=== PATIENT | female | born 1940 | race Caucasian/White ===

== ENCOUNTER 2016-12-30 11:18 | Emergency (ER) | payer OTHER ==
[~2016-12-30] VITALS: Ht 157.5 cm; Wt 63.5 kg
[~2016-12-30 11:18] MED LIST: ASPI81 PO; DICY1TAB26 PO; ENAL10TA7 PO; LORT5TAB PO; METO50TA PO; OMEP20TA PO; PIOG15 PO; PROM1SUP12 PR; ZOCO40TA PO; ZOFR4TAB3 SL
[2016-12-30 11:20] VITALS: BP 194/85; PULSE 75; RESP 17; TEMP 97.8; O2SAT 98
--- NOTE | 2016-12-30 12:05 | PD ---
HPI Chief Complaint: Cold / Flu Symptoms Time Seen by Provider: 11:45 Travel History International Travel<30 days: No Contact w/Intl Traveler<30days: No Traveled to known affect area: No History of Present Illness HPI Patient is a 76-year-old female presenting to the emergency room for evaluation of a cough. She is mostly Urdu-speaking, she is accompanied by her daughter who declined formal interpretation. Patient states that she has been coughing for 2 weeks, cough is productive with white sputum. She has had nasal congestion which seems to have gotten somewhat better since initiation of her symptoms. She denies any shortness of breath or chest pain, nausea, vomiting, abdominal pain. Her primary care provider prescribed a Z-Diego at the initiation of her symptoms but she reports that she continues to cough. The patient's spouse is currently admitted to the hospital with pneumonia. Patient's past medical history is significant for hypertension, type 2 diabetes, hyperlipidemia , rheumatoid arthritis. PFSH Past Medical History Autoimmune Disease: Yes (rheumatoid arthritis) High Cholesterol: Yes Diabetes: Yes Hypertension: Yes Influenza Vaccination: Yes Menopausal: Yes Past Surgical History Cholecystectomy: Yes Other Surgery: Yes (BREAST BIOPSY) Social History Alcohol Use: No Tobacco Use: No Substance Use: No Allergies-Medications (Allergen,Severity, Reaction): Coded Allergies: Penicillin (Verified Allergy, Severe, UNKNOWN, 12/30/16) Reported Meds & Prescriptions Reported Meds & Active Scripts Active Ipratropium Nasal 0.06% [place] 1 [place] EACH NARE TID PRN Tessalon Perles (Benzonatate) 100 Mg Cap 100 Mg PO TID PRN Bentyl (Dicyclomine HCl) 20 Mg Tab 20 Mg PO Q8 Zofran ODT (Ondansetron HCl) 4 Mg Tab 4 Mg SL Q8 PRN FOR NAUSEA/VOMITING Phenergan 25 mg supp (Promethazine HCl) 25 Mg Sup 12.5-25 Mg GA Q6HPRN FOR NAUSEA/VOMITING Lortab 5/500 (Acetaminophen/Hydrocodone Bitart) 5 Mg/500 Mg Tab 1-2 Tab PO Q6HPRN FOR PAIN Reported Metoprolol Tartrate 50 mg (Metoprolol Tartrate) 50 Mg Tab 50 Mg PO DAILY Zocor 40 mg (Simvastatin) 40 Mg Tab 1 Tab PO HS Enalapril Maleate/Hydroch (Enalapril Maleate & Hydrochlor) 10 Mg Tab 10 Mg PO DAILY Actos 15 mg (Pioglitazone HCl) 15 Mg Tab 15 Mg PO DAILY Aspirin 81 Mg Tab 81 Mg PO DAILY Omeprazole 20 mg (Omeprazole) 20 Mg Tab 20 Mg PO DAILY Review of Systems Except as stated in HPI: all other systems reviewed are Neg General / Constitutional: No: Fever, Chills HENT: Positive: Rhinitis, Congestion, No: Headaches Respiratory: Positive: Cough, No: Shortness of Breath Gastrointestinal: No: Nausea, Abdominal Pain Genitourinary: No: Dysuria Musculoskeletal: Positive: Arthralgias (due to rheumatoid arthritis) Physical Exam Narrative GENERAL: Well-developed, well-nourished, alert elderly female. Resting comfortably in no acute distress. SKIN: Focused skin assessment warm/dry. HEAD: Atraumatic. Normocephalic. EYES: Pupils equal and round. No scleral icterus. No injection or drainage. ENT: No nasal bleeding or discharge. Mucous membranes pink and moist. Posterior pharynx with cobblestoning appearance. NECK: Trachea midline. No JVD. CARDIOVASCULAR: Regular rate and rhythm. No murmur appreciated. RESPIRATORY: No accessory muscle use. Clear to auscultation. Breath sounds equal bilaterally. GASTROINTESTINAL: Abdomen soft, non-tender, nondistended. Hepatic and splenic margins not palpable. MUSCULOSKELETAL: No obvious deformities. No clubbing. No cyanosis. No edema. NEUROLOGICAL: Awake and alert. No obvious cranial nerve deficits. Motor grossly within normal limits. Normal speech. PSYCHIATRIC: Appropriate mood and affect; insight and judgment normal. Data Data Last Documented VS Vital Signs Date Time Temp Pulse Resp B/P Pulse Ox O2 Delivery O2 Flow Rate FiO2 12/30/16 11:46 98 Room Air 12/30/16 11:20 97.8 75 17 194/85 Orders Chest, Pa & Lat (12/30/16 ) MDM Medical Decision Making Medical Screen Exam Complete: Yes Emergency Medical Condition: Yes Interpretation(s) Vital Signs Date Time Temp Pulse Resp B/P Pulse Ox O2 Delivery O2 Flow Rate FiO2 12/30/16 11:46 98 Room Air 12/30/16 11:20 97.8 75 17 194/85 98 Differential Diagnosis Bronchitis versus pneumonia versus allergic rhinitis versus postinfectious cough versus other Narrative Course Patient is a 76-year-old female presenting to the emergency for evaluation of a cough that has been ongoing for 2 weeks. Patient was prescribed a Z-Diego by her primary doctor at the onset of her symptoms, she completed this prescription. She continues to have a dry cough that is productive at times with clear sputum. Patient is Afebrile, she is well oxygenated on room air. She not appear acutely ill. Chest x-ray shows no acute disease. Patient does have nasal congestion with postnasal drip as evidenced by the cobblestone appearance to her posterior pharynx. Cough is likely secondary to that. Patient will be provided with prescription for Atrovent nasal spray and Tessalon Perles. She will be provided with a prescription for doxycycline due to husbands admission to the ICU with bilateral pneumonia. Possible exposure to the same pathogens. She is advised to follow-up with her primary doctor. She is encouraged to return to emergency department for any new or worsening symptoms. Patient and daughter verbalized understanding of these instructions. Patient is stable for discharge. Diagnosis Primary Impression: URI (upper respiratory infection) Qualified Code: J06.9 - Upper respiratory tract infection, unspecified type Referrals: Primary Care Physician 2 days Patient Instructions: Acute Cough (GEN), General Instructions, Upper Respiratory Infection (ED) Additional Instructions: Follow-up with her primary doctor Take medications as directed Return to emergency department immediately for any new or worsening symptoms Med/Other Pt SpecificInfo: Prescription(s) given Scripts Doxycycline Hyclate 100 Mg [id number] Mg PO BID #20 CAP Ref 0 Prov:Ashly Collado 12/30/16 Ipratropium Nasal 0.06% Spr[place]1 [place] EACH NARE TID PRN (NASAL CONGESTION) #1 BOTTLE Ref 0 Prov:Ashly Collado 12/30/16 Benzonatate (Tessalon Perles)100 Mg [id number] Mg PO TID PRN (COUGH) #12 CAP Ref 0 Prov:Ashly Collado 12/30/16 Disposition: 01 DISCHARGE HOME Condition: Stable Ashly Collado Dec 30, 2016 12:05
--- NOTE | 2016-12-30 12:45 | RADRPT ---
EXAM DATE/TIME: 12/30/2016 12:09 [facility] COMPARISON: No previous studies available for comparison. INDICATIONS : Cough. MEDICAL HISTORY : None. SURGICAL HISTORY : None. ENCOUNTER: Initial ACUITY: 2 weeks PAIN SCORE: 0/10 LOCATION: Bilateral chest FINDINGS: The lungs are clear without infiltrate, nodule, or mass. There is no appreciable pleural effusion fo r technique. Heart and mediastinum are unremarkable. Degenerative changes and hypertrophic changes a re seen within the disc space and facets of the thoracic spine. CONCLUSION: No acute cardiopulmonary disease. Kimberly Sutton MD on December 30, 2016 at 12:43 Board Certified Radiologist. This report was verified electronically.
[2016-12-30] MEDS ORDERED: BENZ100 PO (12:53)
[2016-12-30] MEDS ORDERED: IPRA0.06 EACH NARE (12:53)
[2016-12-30] MEDS ORDERED: DOXY100C PO (13:15)
--- NOTE | 2016-12-30 13:15 | PD ---
Data Data Last Documented VS Vital Signs Date Time Temp Pulse Resp B/P Pulse Ox O2 Delivery O2 Flow Rate FiO2 12/30/16 11:46 98 Room Air 12/30/16 11:20 97.8 75 17 194/85 Orders Chest, Pa & Lat (12/30/16 ) MDM Supervised Visit with JOANNE: Yes Narrative Course I, Dr. Hyman, have reviewed the advance practice practioner's documentation and am in agreement, met with the patient face to face, made the diagnosis, and the medical decision making was done by me. *My assessment and Findings: 76-year-old female here with complaint of cough. 2 weeks of cough with sputum production. Not responding to Z-Diego at home. She does have some postnasal drip symptoms. Her spouse is in the ICU presented with a bilateral pneumonia. Patient is ultimately concern for same. Her lungs have some rhonchi scattered on exam but she is overall well-appearing. Chest x- ray looks normal. Patient will be given perception for doxycycline given her exposure and treated for postnasal drip and cough. Diagnosis Primary Impression: URI (upper respiratory infection) Qualified Code: J06.9 - Upper respiratory tract infection, unspecified type Referrals: Primary Care Physician 2 days Patient Instructions: General Instructions, Upper Respiratory Infection (ED), Acute Cough (GEN) Additional Instruction: Follow-up with her primary doctor Take medications as directed Return to emergency department immediately for any new or worsening symptoms Scripts Ipratropium Nasal 0.06% Spray1 [place] EACH NARE TID PRN (NASAL CONGESTION) #1 BOTTLE Ref 0 Prov:Ashly Collado 12/30/16 Benzonatate (Tessalon Perles)100 Mg [id number] Mg PO TID PRN (COUGH) #12 CAP Ref 0 Prov:Ashly Collado 12/30/16 Disposition: 01 DISCHARGE HOME Condition: Stable Briana yHman MD Dec 30, 2016 13:15
[2016-12-30 13:32] VITALS: BP 182/82
== END 2016-12-30 13:34 | disposition home or self-care (01) ==
LOC: NEPD 11:18
DX: J06.9 Acute upper respiratory infection, unspecified (principal)
CPT/HCPCS: 71020; 99283

== ENCOUNTER 2017-01-01 17:05 | Inpatient (IN) | payer OTHER, MEDICARE ==
[~2017-01-01] VITALS: Ht 152.4 cm; Wt 65.3 kg
[~2017-01-01 17:05] MED LIST changes: +BENZ100 PO; +DOXY100C PO; +IPRA0.06 EACH NARE
[2017-01-01 17:07] VITALS: BP 228/96; PULSE 84; RESP 24; TEMP 97.7; O2SAT 98
[2017-01-01] MEDS ORDERED: ASPI1TAB69 PO (17:16)
[2017-01-01 17:17] VITALS: BP 133/74; PULSE 79; RESP 16; TEMP 97.8; O2SAT 99
[2017-01-01] MEDS ORDERED: METO50TA PO (17:27)
[2017-01-01] MEDS ORDERED: VASO10TA8 PO (17:27)
[2017-01-01] MEDS ORDERED: GLIP5TAB8 PO (17:27)
[2017-01-01] MEDS ORDERED: OMEP20TA PO (17:28)
--- NOTE | 2017-01-01 17:51 | PD ---
HPI Chief Complaint: General Weakness Time Seen by Provider: 17:16 Travel History International Travel<30 days: No Contact w/Intl Traveler<30days: No Traveled to known affect area: No History of Present Illness HPI Patient is a 76-year-old female who presents to emergency room with complaints of not feeling well. Patient reports that 2 weeks ago, she was diagnosed with bronchitis and was on a Z-Diego. She reports no relief with Z-Diego, reports that she was seen in the emergency room on December 30 and was started on doxycycline. Patient reports that her is currently to the hospital for multilobar pneumonia and is currently in ICU intubated. Patient reports that she has been visiting him every single day, reports that today, she was upstairs and felt lightheaded and dizzy and began to vomit. Patient was told to come to the emergency room for evaluation. Patient reports that she is still taking her doxycycline, reports that she is not feeling any better. She reports that she still has a productive cough. Denies any fevers or chills. Patient denies any chest pain or shortness of breath at this time. PFSH Past Medical History Hx Anticoagulant Therapy: Yes (ASA) Autoimmune Disease: Yes (rheumatoid arthritis) Cardiovascular Problems: Yes (HBP) High Cholesterol: Yes Diabetes: Yes Patient Takes Glucophage: No Diminished Hearing: No Hypertension: Yes Medical other: Yes (DM) Tetanus Vaccination: > 5 Years Influenza Vaccination: Yes Menopausal: Yes Past Surgical History Cholecystectomy: Yes Other Surgery: Yes (BREAST BIOPSY) Social History Alcohol Use: No Tobacco Use: No Substance Use: No Allergies-Medications (Allergen,Severity, Reaction): Coded Allergies: Penicillin (Verified Allergy, Severe, RASH, 01/01/17) Reported Meds & Prescriptions Reported Meds & Active Scripts Active Doxycycline Hyclate 100 Mg Cap 100 Mg PO BID Ipratropium Nasal 0.06% [place] 1 [place] EACH NARE TID PRN Tessalon Perles (Benzonatate) 100 Mg Cap 100 Mg PO TID PRN Reported Omeprazole 20 Mg Tab 20 Mg PO DAILY Glipizide 5 Mg Tab 5 Mg PO BIDAC Take 30 minutes before a meal Vasotec (Enalapril Maleate) 10 Mg Tab 20 Mg PO DAILY Metoprolol Tartrate 50 Mg Tab 50 Mg PO DAILY Aspirin 81 Mg Tabdr 81 Mg PO DAILY Review of Systems General / Constitutional: No: Fever Eyes: No: Visual changes HENT: No: Headaches Cardiovascular: No: Chest Pain or Discomfort Respiratory: Positive: Cough, Shortness of Breath Gastrointestinal: Positive: Nausea, Vomiting, No: Abdominal Pain Genitourinary: No: Dysuria Musculoskeletal: No: Pain Skin: No Rash Neurologic: Positive: Weakness, Dizziness Psychiatric: No: Depression Endocrine: No: Polydipsia Hematologic/Lymphatic: No: Easy Bruising Physical Exam Narrative GENERAL: Mild distress SKIN: Focused skin assessment warm/dry. HEAD: Atraumatic. Normocephalic. EYES: Pupils equal and round. No scleral icterus. No injection or drainage. ENT: No nasal bleeding or discharge. Mucous membranes pink and moist. NECK: Trachea midline. No JVD. CARDIOVASCULAR: Regular rate and rhythm. No murmur appreciated. RESPIRATORY: No accessory muscle use. Patient with rhonchi at lung bases GASTROINTESTINAL: Abdomen soft, non-tender, nondistended. Hepatic and splenic margins not palpable. MUSCULOSKELETAL: No obvious deformities. No clubbing. No cyanosis. No edema. NEUROLOGICAL: Awake and alert. No obvious cranial nerve deficits. Motor grossly within normal limits. Normal speech. PSYCHIATRIC: Patient anxious on exam Data Data Last Documented VS Vital Signs Date Time Temp Pulse Resp B/P Pulse Ox O2 Delivery O2 Flow Rate FiO2 01/01/17 17:20 85 17 99 Room Air 01/01/17 17:17 97.8 133/74 Orders Electrocardiogram (01/01/17 ) [facility] Medical Decision Making Medical Screen Exam Complete: Yes Emergency Medical Condition: Yes Interpretation(s) EKG at 1747: NSR at 69bpm, qt/qtc: 408/428, no acute st or t wave changes Vital Signs Date Time Temp Pulse Resp B/P Pulse Ox O2 Delivery O2 Flow Rate FiO2 01/01/17 17:20 85 17 99 Room Air 01/01/17 17:17 97.8 79 16 133/74 99 01/01/17 17:07 97.7 84 24 228/96 98 Room Air Differential Diagnosis Influenza, pneumonia, electrolyte abnormality Narrative Course Patient is a 76-year-old female who presents to emergency room with complaints of generalized weakness. Patient reports that she has been dealing with bronchitis for the past 2 weeks, reports that she failed a course of antibiotics with azithromycin and is currently on doxycycline for the past 2 days. Reports that her is currently in the ICU for treatment of multilobar pneumonia. Patient presents to emergency room from the ICU after having an episode of dizziness, with nausea and vomiting. Patient at this time reports that she feels shaky and weak. Reports that she still has a cough. Labs ordered, x-ray chest ordered. Plan to give IV fluids and monitor patient. Jaelyn Arrieta DO Jan 01, 2017 17:51
[2017-01-01 17:55] VITALS: BP_SYST 128; BP_SYST 149; BP_SYST 156; BP_DIAS 65; BP_DIAS 67; BP_DIAS 68; RESP 16; O2SAT 99
[2017-01-01] MEDS ORDERED: SODIUM CHLOR 0.9% 1000 ML INJ 1,000 ML IV ONE (18:00)
--- NOTE | 2017-01-01 18:39 | RADRPT ---
EXAM DATE/TIME: 01/01/2017 18:11 [facility] COMPARISON: No previous studies available for comparison. INDICATIONS : Cough and congestion. MEDICAL HISTORY : None. SURGICAL HISTORY : None. ENCOUNTER: Initial ACUITY: 4 - 6 days PAIN SCORE: 5/10 LOCATION: Bilateral chest FINDINGS: A single view of the chest demonstrates the lungs to be symmetrically aerated without evidence of mas s, infiltrate or effusion. The cardiomediastinal contours are unremarkable. Osseous structures are intact. CONCLUSION: The lungs are clear. Clovis Nathan MD on January 01, 2017 at 18:37 Board Certified Radiologist. This report was verified electronically.
[2017-01-01 18:44] LABS: AUTOMATED NEUTROPHIL # 8.4 TH/MM3 (1.8-7.7); BASOPHIL # 0.1 TH/MM3 (0-0.2); BASOPHIL % 0.4 % (0.0-2.0); EOSINOPHIL # 1.1 TH/MM3 (0-0.4); EOSINOPHIL % 7.3 % (0.0-4.0); HEMO FLAGS DIFF FINAL; LYMPH % 32.3 % (9.0-44.0); MEAN CORPUSCULAR HEMOGLOBIN 26.3 PG (27.0-34.0); MEAN CORPUSCULAR HGB CONC 33.3 % (32.0-36.0); MONO % 5.7 % (0.0-8.0); NEUT % 54.3 % (16.0-70.0); PLATELET COUNT 308 TH/MM3 (150-450); RED BLOOD COUNT 4.05 MIL/MM3 (4.00-5.30); RED CELL DISTRIBUTION WIDTH 14.3 % (11.6-17.2); WHITE BLOOD COUNT 15.4 TH/MM3 (4.0-11.0)
[2017-01-01] MEDS ORDERED: ONDANSETRON HCL 4 MG/2 ML VIAL IVP ONE (19:00)
[2017-01-01 19:07] LABS: ANION GAP 10 MEQ/L (5-15); AST (GOT) 66 U/L (15-37); BICARBONATE 24.6 MEQ/L (21.0-32.0); BLOOD UREA NITROGEN 17 MG/DL (7-18); CHLORIDE 102 MEQ/L (98-107); GLOMERULAR FILTRATION RATE 41 ML/MIN (>89); POTASSIUM 3.5 MEQ/L (3.5-5.1); SODIUM (NA) 137 MEQ/L (136-145)
[2017-01-01 19:12] LABS: ALKALINE PHOSPHATASE 85 U/L (45-117); ALT (GPT) 41 U/L (10-53); TOTAL BILIRUBIN ADULT 0.3 MG/DL (0.2-1.0)
--- NOTE | 2017-01-01 19:29 | PD ---
Data Data Last Documented VS Vital Signs Date Time Temp Pulse Resp B/P Pulse Ox O2 Delivery O2 Flow Rate FiO2 01/01/17 20:15 70 22 136/60 98 Room Air 01/01/17 17:17 97.8 Orders Electrocardiogram (01/01/17 ) Complete Blood Count With Diff (01/01/17 17:51) Comprehensive Metabolic Panel (01/01/17 17:51) Urinalysis - C+S If Indicated (01/01/17 17:51) Blood Culture (01/01/17 17:51) Chest, Single Ap (01/01/17 17:51) Ecg Monitoring (01/01/17 17:51) Iv Access Insert/Monitor (01/01/17 17:51) Oximetry (01/01/17 17:51) Sodium Chlor 0.9% 1000 Ml Inj (Ns 1000 M (01/01/17 18:00) Orthostatic Vital Signs (01/01/17 17:51) Ondansetron Inj (Zofran Inj) (01/01/17 19:00) Influenzae A/B Antigen (01/01/17 18:48) Ceftriaxone Inj (Rocephin Inj) (01/01/17 20:30) Azithromycin Inj (Zithromax Inj) (01/01/17 20:30) Admit Order (Ed Use Only) (01/01/17 20:38) Aspirin Ec (Ecotrin Ec) (01/02/17 09:00) Benzonatate (Tessalon) (01/01/17 20:45) Metoprolol Tartrate (Lopressor) (01/02/17 09:00) (Nf) Omeprazole (01/02/17 09:00) Labs Laboratory Tests Test 01/01/17 01/01/17 18:00 19:30 White Blood Count 15.4 TH/MM3 Red Blood Count 4.05 MIL/MM3 Hemoglobin 10.6 GM/DL Hematocrit 32.0 % Mean Corpuscular Volume 79.0 FL Mean Corpuscular Hemoglobin 26.3 PG Mean Corpuscular Hemoglobin 33.3 % Concent Red Cell Distribution Width 14.3 % Platelet Count 308 TH/MM3 Mean Platelet Volume 9.5 FL Neutrophils (%) (Auto) 54.3 % Lymphocytes (%) (Auto) 32.3 % Monocytes (%) (Auto) 5.7 % Eosinophils (%) (Auto) 7.3 % Basophils (%) (Auto) 0.4 % Neutrophils # (Auto) 8.4 TH/MM3 Lymphocytes # (Auto) 5.0 TH/MM3 Monocytes # (Auto) 0.9 TH/MM3 Eosinophils # (Auto) 1.1 TH/MM3 Basophils # (Auto) 0.1 TH/MM3 CBC Comment DIFF FINAL Differential Comment Sodium Level 137 MEQ/L Potassium Level 3.5 MEQ/L Chloride Level 102 MEQ/L Carbon Dioxide Level 24.6 MEQ/L Anion Gap 10 MEQ/L Blood Urea Nitrogen 17 MG/DL Creatinine 1.28 MG/DL Estimat Glomerular Filtration 41 ML/MIN Rate Random Glucose 182 MG/DL Calcium Level 9.7 MG/DL Total Bilirubin 0.3 MG/DL Aspartate Amino Transf 66 U/L (AST/SGOT) Alanine Aminotransferase 41 U/L (ALT/SGPT) Alkaline Phosphatase 85 U/L Total Protein 9.6 GM/DL Albumin 3.8 GM/DL Urine Color LIGHT-YELLOW Urine Turbidity CLEAR Urine pH 6.5 Urine Specific [place] 1.007 Urine Protein TRACE mg/dL Urine Glucose (UA) NEG mg/dL Urine Ketones NEG mg/dL Urine Occult Blood NEG Urine Nitrite NEG Urine Bilirubin NEG Urine Urobilinogen LESS THAN 2.0 MG/DL Urine Leukocyte Esterase TRACE Urine RBC 2 /hpf Urine WBC 5 /hpf Microscopic Urinalysis Comment CULT NOT INDICATED MDM Medical Record Reviewed: Yes Supervised Visit with JOANNE: No Narrative Course During the course of the patients emergency department visit, the patients history, examination, and differential diagnosis were reviewed with the patient. The patient had IV access obtained and blood work sent for analysis. The patient was placed on a surveillance system monitor with oximetry and blood pressure monitoring. The patient's case was checked out to me by Dr. Arrieta. She requested that I review the patient's laboratory studies and imaging studies and disposition the patient. Based on the patient's multiple rounds of antibiotic coverage and continued symptoms with increase in cough, generalized weakness, vomiting she felt that the patient would at least require admission for observation to the hospital. The patient was initially provided a normal saline 1 L IV fluid bolus, Zofran 4 mg IV. The patients laboratory studies were reviewed and remarkable for a white count of 15.4, hemoglobin 10.6, platelets 308 with 7.3 eosinophils, CMP is remarkable for creatinine of 1.28, glucose 182, AST 66, total protein 9.6. This is compared to her prior laboratory studies. The patient last had laboratory studies in November 2014. The patient's creatinine has increased compared to previously from 1.06 at 1.28. Urinalysis is unremarkable. Radiology studies were reviewed and remarkable for a chest x-ray that shows no evidence of acute cardiopulmonary disease. The patient will be admitted to the hospital for failure of outpatient management of bronchitis now associated with dehydration, vomiting, and generalized weakness. The patients results were discussed with the patient, including the plan of care. I explained that further testing and/ or monitoring is indicated based on the patients history, examination, and/ or laboratory findings. Therefore, I recommended admission for additional evaluation. The patient expressed understanding and was agreeable with this plan. The patient was admitted to the hospital in stable condition and sent to a bed under the care of the [facility] Hospitalist service. Physician Communication Physician Communication The patient's case is discussed with Dr. Shaw who did agree to admit the patient for further evaluation and treatment at this time. Diagnosis Primary Impression: Persistent cough for 3 weeks or longer Additional Impressions: Dehydration Vomiting Qualified Code: R11.2 - Non-intractable vomiting with nausea, unspecified vomiting type Admitting Information Admitting Physician Requests: Admit Bhavya Jacobs MD Jan 01, 2017 19:29
[2017-01-01 20:15] VITALS: BP 136/60; PULSE 70; RESP 22; O2SAT 98
[2017-01-01 20:30] LABS: BLOOD, URINE NEG (NEG); COMMENT (UR) CULT NOT INDICATED; CULTURE IF INDICATED CULT NOT INDICATED; GLUCOSE,URINE NEG (NEG); KETONE, URINE NEG (NEG); NITRITE,URINE NEG (NEG); PH, URINE 6.5 (5.0-8.5); URINE COLOR LIGHT-YELLOW (YELLW/STRAW)
[2017-01-01] MEDS ORDERED: cefTRIAXone INJ 1,000 MG in SODIUM CHLORIDE 0.9% INJ 100 ML IV ONE (20:30)
[2017-01-01] MEDS ORDERED: AZITHROMYCIN INJ 500 MG in SODIUM CHLOR 0.9% 250 ML INJ 250 ML IV ONE (20:30)
[2017-01-01] MEDS ORDERED: NALOXONE HCL 0.4 MG/ML AMP IV PRN (20:45)
[2017-01-01] MEDS ORDERED: SODIUM CHLORIDE 0.9% FLUSH 10 ML FLUSH IV FLUSH PRN (20:45)
[2017-01-01] MEDS ORDERED: DEXTROSE 50% IN WATER 50 ML VIAL(D50) IV PUSH PRN (20:45)
[2017-01-01] MEDS ORDERED: GLUCAGON 1 MG/ML VIAL OTHER PRN (20:45)
[2017-01-01] MEDS ORDERED: RESP: ALBUTEROL 2.5 MG/IPRATROPIUM 0.5 MG NEB (PRN) NEB (20:45)
[2017-01-01] MEDS ORDERED: ACETAMINOPHEN 325 MG TAB PO PRN ×2 (20:45)
--- NOTE | 2017-01-01 20:45 | HHI.HP ---
[facility] Service [facility] Primary Care Physician Jarek Badillo, DO Admission Diagnosis Failed outpatient management bronchitis, dehydration, vomiting Diagnoses: (1) Community acquired bacterial pneumonia (2) Leukocytosis (3) Acute renal failure (4) Anemia of chronic disease (5) Benign hypertension (6) Diabetes mellitus (7) Persistent cough for 3 weeks or longer Chief Complaint: cold and nonproductive cough Travel History International Travel<30 Days: No Contact w/Intl Traveler <30 Da: No Traveled to Known Affected Are: No History of Present Illness 76-year-old speaking female with a history of diabetes type 2 presented to the ED for evaluation of dizziness, productive cough and generalized weakness. She was recently diagnosed with bronchitis 2 weeks ago and was started on Z-Diego which she completed without any improvement. She then returned to the ED on 12/30/16 and was started on doxycycline however she continued to have cold symptoms, dizziness and no productive cough without any febrile episode. Today she was visiting her who is currently in ICU when she became dizzy, lightheaded started vomiting. She has some shortness of breath however without any significant chest pain. She denies any hemoptysis or GI bleed. Review of Systems Other 12 systems reviewed and are negative except for the one mentioned in history of present illness Past Family Social History Past Medical History rheumatoid arthritis High Cholesterol: Yes Diabetes: Yes Hypertension: Yes Past Surgical History Cholecystectomy: Yes BREAST BIOPSY Reported Medications Doxycycline Hyclate 100 Mg Cap 100 Mg PO BID Ipratropium Nasal 0.06% [place] 1 [place] EACH NARE TID PRN Tessalon Perles (Benzonatate) 100 Mg Cap 100 Mg PO TID PRN Reported Omeprazole 20 Mg Tab 20 Mg PO DAILY Glipizide 5 Mg Tab 5 Mg PO BIDAC Take 30 minutes before a meal Vasotec (Enalapril Maleate) 10 Mg Tab 20 Mg PO DAILY Metoprolol Tartrate 50 Mg Tab 50 Mg PO DAILY Aspirin 81 Mg Tabdr 81 Mg PO DAILY Allergies: Coded Allergies: Penicillin (Verified Allergy, Severe, RASH, 01/01/17) Family History She denies any family history of heart disease, hypertension, diabetes Social History Alcohol Use: No Tobacco Use: No Substance Use: No Physical Exam Vital Signs Vital Signs Date Time Temp Pulse Resp B/P Pulse Ox O2 Delivery O2 Flow Rate FiO2 01/01/17 20:15 70 22 136/60 98 Room Air 01/01/17 17:55 78 16 128/68 76 16 156/65 82 16 149/67 01/01/17 17:55 16 99 Room Air 01/01/17 17:20 85 17 99 Room Air 01/01/17 17:17 97.8 79 16 133/74 99 01/01/17 17:07 97.7 84 24 228/96 98 Room Air Physical Exam GENERAL: This is a well-nourished, well-developed patient, in no apparent distress. SKIN: No rashes, ecchymoses or lesions. Cool and dry. HEAD: Atraumatic. Normocephalic. No temporal or scalp tenderness. EYES: Pupils equal round and reactive. Extraocular motions intact. No scleral icterus. No injection or drainage. ENT: Nose without bleeding, purulent drainage or septal hematoma. Throat without erythema, tonsillar hypertrophy or exudate. Uvula midline. Airway patent. NECK: Trachea midline. No JVD or lymphadenopathy. Supple, nontender, no meningeal signs. CARDIOVASCULAR: Regular rate and rhythm without murmurs, gallops, or rubs. RESPIRATORY: Clear to auscultation. Breath sounds decreased bilaterally. No wheezes, rales, or rhonchi. GASTROINTESTINAL: Abdomen soft, non-tender, nondistended. No hepato-splenomegaly , or palpable masses. No guarding. MUSCULOSKELETAL: Extremities without clubbing, cyanosis, or edema. No joint tenderness, effusion, or edema noted. No calf tenderness. Negative Homans sign bilaterally. NEUROLOGICAL: Awake and alert. Cranial nerves II through XII intact. Motor and sensory grossly within normal limits. Five out of 5 muscle strength in all muscle groups. Normal speech. Laboratory Laboratory Tests Test 01/01/17 01/01/17 18:00 19:30 White Blood Count 15.4 Red Blood Count 4.05 Hemoglobin 10.6 Hematocrit 32.0 Mean Corpuscular Volume 79.0 Mean Corpuscular Hemoglobin 26.3 Mean Corpuscular Hemoglobin 33.3 Concent Red Cell Distribution Width 14.3 Platelet Count 308 Mean Platelet Volume 9.5 Neutrophils (%) (Auto) 54.3 Lymphocytes (%) (Auto) 32.3 Monocytes (%) (Auto) 5.7 Eosinophils (%) (Auto) 7.3 Basophils (%) (Auto) 0.4 Neutrophils # (Auto) 8.4 Lymphocytes # (Auto) 5.0 Monocytes # (Auto) 0.9 Eosinophils # (Auto) 1.1 Basophils # (Auto) 0.1 CBC Comment DIFF FINAL Differential Comment Sodium Level 137 Potassium Level 3.5 Chloride Level 102 Carbon Dioxide Level 24.6 Anion Gap 10 Blood Urea Nitrogen 17 Creatinine 1.28 Estimat Glomerular Filtration 41 Rate Random Glucose 182 Calcium Level 9.7 Total Bilirubin 0.3 Aspartate Amino Transf 66 (AST/SGOT) Alanine Aminotransferase 41 (ALT/SGPT) Alkaline Phosphatase 85 Total Protein 9.6 Albumin 3.8 Urine Color LIGHT-YELLOW Urine Turbidity CLEAR Urine pH 6.5 Urine Specific [place] 1.007 Urine Protein TRACE Urine Glucose (UA) NEG Urine Ketones NEG Urine Occult Blood NEG Urine Nitrite NEG Urine Bilirubin NEG Urine Urobilinogen LESS THAN 2.0 Urine Leukocyte Esterase TRACE Urine RBC 2 Urine WBC 5 Microscopic Urinalysis Comment CULT NOT INDICATED Date/Time Procedure Status Source Growth 01/01/17 18:11 Influenza Types A,B Antigen (JOSHUA) - Final Complete Nasal Aspirate NEGATIVE FOR FLU A AND B ANTIGEN.... 01/01/17 18:00 Aerobic Blood Culture Received Blood Peripheral Pending 01/01/17 18:00 Anaerobic Blood Culture Received Blood Peripheral Pending Result Diagram: 01/01/17 1800 01/01/17 1800 Imaging Last Impressions Chest X-Ray 01/01/17 1751 Signed Impressions: Service Date/Time: Sunday, January 01, 2017 18:11 - CONCLUSION: The lungs are clear. Clovis Nathan MD Assessment and Plan Problem List: (1) Community acquired bacterial pneumonia ICD Code: J15.9 Status: Acute (2) Persistent cough for 3 weeks or longer ICD Code: R05 Status: Acute (3) Leukocytosis ICD Code: D72.829 Status: Acute (4) Acute renal failure ICD Code: N17.9 Status: Acute (5) Anemia of chronic disease ICD Code: D63.8 Status: Acute (6) Benign hypertension ICD Code: I10 Status: Acute (7) Diabetes mellitus ICD Code: E11.9 Status: Acute (8) Dehydration ICD Code: E86.0 Status: Acute (9) Vomiting ICD Code: R11.10 Status: Acute Assessment and Plan 76-year-old female with Community-acquired bacterial pneumonia Failed outpatient therapy Patient's currently on doxycycline without any improvement Start Levaquin 250 mg IV daily renally dose DuoNeb when necessary Acute renal failure Prerenal, secondary to dehydration; gentle IV fluid hydration and monitor BUN and creatinine Diabetes type 2 Hold oral hypoglycemic agent, starts insulin sliding scale with fingerstick blood glucose monitoring Check hemoglobin A1c Anemia of chronic disease H&H stable, continue to monitor Hypertension Resume Lopressor, Vasotec in a.m. DVT prophylaxis: Bilateral SCDs Code Status Full code Discussed Condition With Patient, daughter, ED physician Physician Certification 2 Midnight Certification Type: Admission for Inpatient Services Order for Inpatient Services The services are ordered in accordance with Medicare regulations or non- Medicare payer requirements, as applicable. In the case of services not specified as inpatient-only, they are appropriately provided as inpatient services in accordance with the 2-midnight benchmark. Estimated LOS (days): 2 days is the estimated time the patient will need to remain in the hospital, assuming treatment plan goals are met and no additional complications. Post-Hospital Plan: Not yet determined Problem Qualifiers (1) Vomiting: Qualified Code: R11.2 - Non-intractable vomiting with nausea, unspecified vomiting type Theron Shaw MD Jan 01, 2017 20:45
[2017-01-01] MEDS ORDERED: BENZONATATE 100 MG CAP PO PRN (21:00)
[2017-01-01] MEDS: SODIUM CHLORIDE 0.9% FLUSH 10 ML FLUSH IV FLUSH SCH (21:01)
[2017-01-01] MEDS: SODIUM CHLOR 0.9% 1000 ML INJ 1,000 ML IV SCH (21:06)
[2017-01-01] MEDS: INSULIN ASPART SUPPLEMENTAL SCALE SQ SCH (21:07)
[2017-01-01] MEDS: ONDANSETRON HCL 4 MG/2 ML VIAL IVP PRN (21:54)
[2017-01-01 22:50] VITALS: BP 161/76; PULSE 73; RESP 16; TEMP 97; O2SAT 97
[2017-01-01] MEDS: TEMAZEPAM 15 MG CAP PO PRN (23:30)
[2017-01-01] MEDS: cloNIDine HCL 0.1 MG TAB PO PRN (23:30)
[2017-01-02 04:25] VITALS: BP 127/65; PULSE 69; RESP 16; TEMP 96.7; O2SAT 97
[2017-01-02] MEDS: INSULIN ASPART SUPPLEMENTAL SCALE SQ SCH ×4 (07:00→23:00)
[2017-01-02 07:20] LABS: AUTOMATED NEUTROPHIL # 6.5 TH/MM3 (1.8-7.7); BASOPHIL % 0.4 % (0.0-2.0); EOSINOPHIL # 0.6 TH/MM3 (0-0.4); EOSINOPHIL % 5.1 % (0.0-4.0); HEMATOCRIT 28.9 % (35.0-46.0); HEMO FLAGS DIFF FINAL; LYMPH % 31.8 % (9.0-44.0); LYMPHOCYTE # 3.6 TH/MM3 (1.0-4.8); MEAN CELL VOLUME 80.1 FL (80.0-100.0); MEAN CORPUSCULAR HGB CONC 32.4 % (32.0-36.0); MONO % 6.2 % (0.0-8.0); NEUT % 56.5 % (16.0-70.0); PLATELET COUNT 241 TH/MM3 (150-450); RED BLOOD COUNT 3.61 MIL/MM3 (4.00-5.30); RED CELL DISTRIBUTION WIDTH 14.4 % (11.6-17.2); WHITE BLOOD COUNT 11.5 TH/MM3 (4.0-11.0)
[2017-01-02 07:31] VITALS: BP 149/70; PULSE 63; RESP 17; TEMP 97.5; O2SAT 98
[2017-01-02 07:54] LABS: ALKALINE PHOSPHATASE 59 U/L (45-117); ALT (GPT) 31 U/L (10-53); ANION GAP 8 MEQ/L (5-15); AST (GOT) 47 U/L (15-37); BICARBONATE 24.1 MEQ/L (21.0-32.0); BLOOD UREA NITROGEN 11 MG/DL (7-18); CHLORIDE 112 MEQ/L (98-107); GLOMERULAR FILTRATION RATE 51 ML/MIN (>89); POTASSIUM 3.9 MEQ/L (3.5-5.1); SODIUM (NA) 144 MEQ/L (136-145); TOTAL BILIRUBIN ADULT 0.3 MG/DL (0.2-1.0)
[2017-01-02] MEDS: METOPROLOL TARTRATE 50 MG TAB PO SCH (09:55)
[2017-01-02] MEDS: LEVOFLOXACIN 250 MG PREMIX INJ 50 ML IV SCH (11:24)
[2017-01-02] MEDS: PANTOPRAZOLE SOD 20 MG DELAYED RELEASE TAB PO SCH (11:24)
[2017-01-02] MEDS: ASPIRIN EC 81 MG TABEC PO SCH (11:24)
[2017-01-02] MEDS: SODIUM CHLORIDE 0.9% FLUSH 10 ML FLUSH IV FLUSH SCH ×2 (11:25→22:59)
[2017-01-02 12:24] VITALS: BP 155/71; PULSE 62; RESP 16; TEMP 96.4; O2SAT 96
[2017-01-02 13:58] LABS: HEMOGLOBIN A1a 1.1 %; HEMOGLOBIN A1b 2.1 %; HEMOGLOBIN Ao 82.5 %; HEMOGLOBIN LA1C 2.1 %; HEMOGLOBIN P3 4.5 %
[2017-01-02] MEDS ORDERED: MAGNESIUM HYDROXIDE SUSP 30 ML CUP PO PRN (14:00)
[2017-01-02] MEDS: DOCUSATE SODIUM 100 MG CAP PO SCH ×2 (14:00→22:59)
--- NOTE | 2017-01-02 14:25 | EKG ---
Date Performed: 01/01/2017 Time Performed: 17:47:13 PTAGE: 76 years EKG: Sinus rhythm NORMAL ECG NO PREVIOUS TRACING DOCTOR: Beni Craig Interpretating Date/Time 01/02/2017 14:22:08
[2017-01-02] MEDS: guaiFENesin E.R. 600 MG TAB PO SCH ×2 (14:45→22:59)
--- NOTE | 2017-01-02 14:54 | HHI.PR ---
Subjective Remarks Follow-up for dizziness, productive cough and generalized weakness. Patient seen and examined with myself and Dr. Miles. Does admit to still feeling congested with continued productive cough and white phlegm. Also complaints of occasional dizziness. Patient sitting up on side of bed, eating lunch. Denies any nausea or vomiting. Positive BM yesterday. Denies any fever, chills, chest pain, or shortness of breath. Objective Vitals Vital Signs Date Time Temp Pulse Resp B/P Pulse Ox O2 Delivery O2 Flow Rate FiO2 01/02/17 07:31 97.5 63 17 149/70 98 01/02/17 04:25 96.7 69 16 127/65 97 01/01/17 22:50 97.0 73 16 161/76 97 01/01/17 20:15 70 22 136/60 98 Room Air 01/01/17 17:55 78 16 128/68 76 16 156/65 82 16 149/67 01/01/17 17:55 16 99 Room Air 01/01/17 17:20 85 17 99 Room Air 01/01/17 17:17 97.8 79 16 133/74 99 01/01/17 17:07 97.7 84 24 228/96 98 Room Air I/O 01/01/17 01/01/17 01/01/17 01/02/17 01/02/17 01/02/17 07:00 15:00 23:00 07:00 15:00 23:00 Intake Total 120 ml Balance 120 ml Intake Oral 120 ml # Voids 1 # Bowel Movements 0 Result Diagram: 01/02/17 0651 01/02/17 0651 Imaging Last Impressions Chest X-Ray 01/01/17 6231 Signed Impressions: Service Date/Time: Sunday, January 01, 2017 18:11 - CONCLUSION: The lungs are clear. Clovis Nathan MD Objective Remarks GENERAL: Well-nourished, well-developed patient, NAD. SKIN: No rashes, ecchymoses or lesions. Cool and dry. HEENT: Atraumatic. Normocephalic. No temporal or scalp tenderness. PERRLA. Extraocular motions intact. No scleral icterus. Nose without bleeding, purulent drainage or septal hematoma. Airway patent. NECK: Trachea midline. No JVD or lymphadenopathy. Supple, nontender, no meningeal signs. CARDIOVASCULAR: Regular rate and rhythm without murmurs, gallops, or rubs. RESPIRATORY: CTA. Breath sounds decreased bilaterally. No wheezes, rales, or rhonchi. GASTROINTESTINAL: Abdomen soft, non-tender, nondistended. No hepato-splenomegaly , or palpable masses. No guarding. MUSCULOSKELETAL: Extremities without clubbing, cyanosis, or edema. No joint tenderness, effusion, or edema noted. No calf tenderness. NEUROLOGICAL: Awake and alert. Cranial nerves II through XII intact. Motor and sensory grossly within normal limits. Five out of 5 muscle strength in all muscle groups. Normal speech. Urinary Catheter: No Vascular Central Line Catheter: No A/P Assessment and Plan 76-year-old speaking female with a history of diabetes type 2 who presented to the ED for evaluation of dizziness, productive cough and generalized weakness, who failed outpatient azithromycin antibiotic treatment for bronchitis two weeks ago. Community-acquired bacterial pneumonia with associated leukocytosis and productive cough and congestion -Failed outpatient therapy -Continue Levaquin 250 mg IV daily renally dose. - BC NGTD. -DuoNeb PRN. Encourage IS and acapella use. -WBC 11.5, CBC in am. - Start Mucinex 600 mg BID scheduled for congestion. Acute renal failure, prerenal secondary to dehydration - Creatinine 1.05 today 01/02 - Continue IVF NS 100 ml/hr - CBC and BMP in am, close BUN and creatinine monitoring. - Encourage PO intake Type 2 diabetes - Hold oral hypoglycemic agent at this time. - Continue insulin sliding scale with fingerstick blood glucose monitoring - Hemoglobin A1c pending Anemia of chronic disease - Hemoglobin 9.4, CBC in am. Hypertension - Continue Lopressor. Clonidine PRN. - BP stable at this time. DVT prophylaxis: Bilateral SCDs Written by Nell Burk, acting as scribe for Dr. Miles on 01/02/17 at 1400. This note was transcribed by scribe Nell HONG. I, Dr. Edilma Miles personally performed the history, physical exam, and medical decision making; and confirmed the accuracy of the information in the transcribed note. Authenticated by Dr. Edilma Miles on 01/02/17 at 1400. Nell Burk Jan 02, 2017 14:54 Edilma Miles MD Jan 02, 2017 17:36
[2017-01-02 15:55] VITALS: BP 183/74; PULSE 59; RESP 16; TEMP 96.5; O2SAT 97
[2017-01-02] MEDS: SODIUM CHLOR 0.9% 1000 ML INJ 1,000 ML IV SCH (17:00)
[2017-01-02] MEDS: cloNIDine HCL 0.1 MG TAB PO PRN (17:22)
[2017-01-02 19:00] VITALS: BP 162/71; PULSE 65; RESP 17; TEMP 97; O2SAT 99
[2017-01-02] MEDS ORDERED: cefTRIAXone INJ 1,000 MG in SODIUM CHLORIDE 0.9% INJ 100 ML IV SCH (21:00)
[2017-01-02] MEDS ORDERED: AZITHROMYCIN INJ 500 MG in SODIUM CHLOR 0.9% 250 ML INJ 250 ML IV SCH (22:00)
[2017-01-03] VITALS (7 sets, daily range): BP systolic 124–161; BP diastolic 60–76; PULSE 56–74; RESP 16–20; TEMP 96.7–98.3; O2SAT 97–99
[2017-01-03] MEDS: TEMAZEPAM 15 MG CAP PO PRN ×2 (02:21→22:47)
[2017-01-03 06:24] LABS: AUTOMATED NEUTROPHIL # 5.5 TH/MM3 (1.8-7.7); BASOPHIL # 0.1 TH/MM3 (0-0.2); BASOPHIL % 0.5 % (0.0-2.0); EOSINOPHIL # 1.6 TH/MM3 (0-0.4); EOSINOPHIL % 14.2 % (0.0-4.0); HEMATOCRIT 28.8 % (35.0-46.0); HEMO FLAGS DIFF FINAL; LYMPH % 30.5 % (9.0-44.0); LYMPHOCYTE # 3.4 TH/MM3 (1.0-4.8); MEAN CELL VOLUME 79.8 FL (80.0-100.0); MEAN CORPUSCULAR HEMOGLOBIN 26.4 PG (27.0-34.0); MEAN CORPUSCULAR HGB CONC 33.1 % (32.0-36.0); MONO % 4.8 % (0.0-8.0); PLATELET COUNT 248 TH/MM3 (150-450); RED BLOOD COUNT 3.61 MIL/MM3 (4.00-5.30); RED CELL DISTRIBUTION WIDTH 14.2 % (11.6-17.2); WHITE BLOOD COUNT 11.1 TH/MM3 (4.0-11.0)
[2017-01-03 06:41] LABS: BICARBONATE 25.9 MEQ/L (21.0-32.0); POTASSIUM 3.6 MEQ/L (3.5-5.1)
[2017-01-03] MEDS: INSULIN ASPART SUPPLEMENTAL SCALE SQ SCH ×4 (07:00→22:51)
[2017-01-03] MEDS: SODIUM CHLORIDE 0.9% FLUSH 10 ML FLUSH IV FLUSH SCH ×2 (09:17→21:00)
[2017-01-03] MEDS: LEVOFLOXACIN 250 MG PREMIX INJ 50 ML IV SCH (09:18)
[2017-01-03] MEDS: ASPIRIN EC 81 MG TABEC PO SCH (09:18)
[2017-01-03] MEDS: METOPROLOL TARTRATE 50 MG TAB PO SCH (09:18)
[2017-01-03] MEDS: DOCUSATE SODIUM 100 MG CAP PO SCH ×2 (09:18→22:46)
[2017-01-03] MEDS: guaiFENesin E.R. 600 MG TAB PO SCH ×2 (09:18→22:47)
[2017-01-03] MEDS: PANTOPRAZOLE SOD 20 MG DELAYED RELEASE TAB PO SCH (09:18)
[2017-01-03] MEDS: ONDANSETRON HCL 4 MG/2 ML VIAL IVP PRN (10:30)
[2017-01-03] MEDS ORDERED: ENALAPRILAT 2.5 MG/2 ML VIAL IV PUSH PRN (12:00)
--- NOTE | 2017-01-03 14:21 | HHI.PR ---
Subjective Remarks Patient in bed, says she feels dizzi, has vertigo at times. She say sroom is speening. Patient also had nausea but did not vomit. No chest pair or sob. Was ot able to eat . Denies diarrhea. No efevrs or chills/ Cough , without flegm, says she feels her chest is congested but can't cough up much. Sating well on room air at this time. Feels very tired. Objective Vitals Vital Signs Date Time Temp Pulse Resp B/P Pulse Ox O2 Delivery O2 Flow Rate FiO2 01/03/17 12:30 96.7 74 20 99 01/03/17 08:05 97.1 73 16 160/70 97 01/03/17 04:00 97.6 58 16 160/69 98 01/03/17 00:00 96.8 56 17 161/72 99 01/02/17 19:00 97.0 65 17 162/71 99 01/02/17 15:55 96.5 59 16 183/74 97 I/O 01/02/17 01/02/17 01/02/17 01/03/17 01/03/17 01/03/17 07:00 15:00 23:00 07:00 15:00 23:00 Intake Total 120 ml 720 ml 480 ml 200 ml Balance 120 ml 720 ml 480 ml 200 ml Intake Oral 120 ml 720 ml 480 ml 200 ml # Voids 1 4 3 2 # Bowel Movements 0 1 0 0 Result Diagram: 01/03/17 0541 01/03/17 0541 Imaging Last Impressions Chest X-Ray 01/01/17 7221 Signed Impressions: Service Date/Time: Sunday, January 01, 2017 18:11 - CONCLUSION: The lungs are clear. Clovis Nathan MD Objective Remarks GENERAL: Well-nourished, well-developed patient, NAD. SKIN: No rashes, ecchymoses or lesions. Cool and dry. HEENT: Atraumatic. Normocephalic. No temporal or scalp tenderness. PERRLA. Extraocular motions intact. No scleral icterus. Nose without bleeding, purulent drainage or septal hematoma. Airway patent. NECK: Trachea midline. No JVD or lymphadenopathy. Supple, nontender, no meningeal signs. CARDIOVASCULAR: Regular rate and rhythm without murmurs, gallops, or rubs. RESPIRATORY: CTA. Breath sounds decreased bilaterally. No wheezes, rales, or rhonchi. GASTROINTESTINAL: Abdomen soft, non-tender, nondistended. No hepato-splenomegaly , or palpable masses. No guarding. MUSCULOSKELETAL: Extremities without clubbing, cyanosis, or edema. No joint tenderness, effusion, or edema noted. No calf tenderness. NEUROLOGICAL: Awake and alert. Cranial nerves II through XII intact. Motor and sensory grossly within normal limits. Five out of 5 muscle strength in all muscle groups. Normal speech. A/P Problem List: (1) Community acquired bacterial pneumonia ICD Code: J15.9 Status: Acute (2) Persistent cough for 3 weeks or longer ICD Code: R05 Status: Acute (3) Leukocytosis ICD Code: D72.829 Status: Acute (4) Acute renal failure ICD Code: N17.9 Status: Acute (5) Anemia of chronic disease ICD Code: D63.8 Status: Acute (6) Benign hypertension ICD Code: I10 Status: Acute (7) Diabetes mellitus ICD Code: E11.9 Status: Acute (8) Dehydration ICD Code: E86.0 Status: Acute (9) Vomiting ICD Code: R11.10 Status: Acute Assessment and Plan 76-year-old speaking female with a history of diabetes type 2 who presented to the ED for evaluation of dizziness, productive cough and generalized weakness, who failed outpatient azithromycin antibiotic treatment for bronchitis two weeks ago. Community-acquired bacterial pneumonia with associated leukocytosis and productive cough and congestion -Failed outpatient therapy -Continue Levaquin 250 mg IV daily renally dose. - BC NGTD. -DuoNeb PRN. Encourage IS and acapella use. -WBC 11.5, CBC in am. - Start Mucinex 600 mg BID scheduled for congestion. Benign Positional Vertigo: Start meclezine. Monitor . Acute renal failure, prerenal secondary to dehydration - Creatinine 1.05 today 01/02 - Continue IVF NS 100 ml/hr - CBC and BMP in am, close BUN and creatinine monitoring. - Encourage PO intake Type 2 diabetes - Hold oral hypoglycemic agent at this time. - Continue insulin sliding scale with fingerstick blood glucose monitoring - Hemoglobin A1c pending Anemia of chronic disease - Hemoglobin 9.4, CBC in am. Hypertension - Continue Lopressor. Clonidine PRN. - BP stable at this time. DVT prophylaxis: Bilateral SCDs PT consult for evaluation Discussed with the patient and the nurse. Problem Qualifiers (1) Vomiting: Qualified Code: R11.2 - Non-intractable vomiting with nausea, unspecified vomiting type Edilma Miles MD Jan 03, 2017 14:21
[2017-01-03] MEDS ORDERED: MECLIZINE HCL 25 MG TAB PO PRN (14:30)
[2017-01-04 00:10] VITALS: BP 142/67; PULSE 60; RESP 15; TEMP 96.7; O2SAT 96
[2017-01-04] MEDS: INSULIN ASPART SUPPLEMENTAL SCALE SQ SCH ×2 (07:00→11:00)
[2017-01-04 08:00] VITALS: BP 145/85; PULSE 65; RESP 20; TEMP 97; O2SAT 92
[2017-01-04] MEDS: guaiFENesin E.R. 600 MG TAB PO SCH (08:08)
[2017-01-04] MEDS: METOPROLOL TARTRATE 50 MG TAB PO SCH (08:08)
[2017-01-04] MEDS: ASPIRIN EC 81 MG TABEC PO SCH (08:08)
[2017-01-04] MEDS: DOCUSATE SODIUM 100 MG CAP PO SCH (08:08)
[2017-01-04] MEDS: PANTOPRAZOLE SOD 20 MG DELAYED RELEASE TAB PO SCH (08:09)
[2017-01-04] MEDS: LEVOFLOXACIN 250 MG PREMIX INJ 50 ML IV SCH (08:11)
--- NOTE | 2017-01-04 08:16 | HHI.PR ---
Subjective Remarks Less dizziness, says she feels improved since yesterday. Less cough. No fever or chills. Denies chest pain. No sob, satting well on room air. No nausea or vomiting. Denies constipation. Objective Vitals Vital Signs Date Time Temp Pulse Resp B/P Pulse Ox O2 Delivery O2 Flow Rate FiO2 01/04/17 00:10 96.7 60 15 142/67 96 01/03/17 20:13 98.3 60 16 124/60 98 01/03/17 17:01 98.2 58 16 158/76 98 01/03/17 14:51 150/70 01/03/17 12:30 96.7 74 20 99 I/O 01/03/17 01/03/17 01/03/17 01/04/17 01/04/17 01/04/17 07:00 15:00 23:00 07:00 15:00 23:00 Intake Total 200 ml 340 ml 720 ml 240 ml Balance 200 ml 340 ml 720 ml 240 ml Intake Oral 200 ml 240 ml 720 ml 240 ml IV Total 100 ml # Voids 2 3 4 3 # Bowel Movements 0 0 0 0 Result Diagram: 01/03/17 0541 01/03/17 0541 Imaging Last Impressions Chest X-Ray 01/01/17 0511 Signed Impressions: Service Date/Time: Sunday, January 01, 2017 18:11 - CONCLUSION: The lungs are clear. Clovis Nathan MD Objective Remarks GENERAL: Well-nourished, well-developed patient, NAD. SKIN: No rashes, ecchymoses or lesions. Cool and dry. HEENT: Atraumatic. Normocephalic. No temporal or scalp tenderness. PERRLA. Extraocular motions intact. No scleral icterus. Nose without bleeding, purulent drainage or septal hematoma. Airway patent. NECK: Trachea midline. No JVD or lymphadenopathy. Supple, nontender, no meningeal signs. CARDIOVASCULAR: Regular rate and rhythm without murmurs, gallops, or rubs. RESPIRATORY: CTA. Breath sounds decreased bilaterally. No wheezes, rales, or rhonchi. GASTROINTESTINAL: Abdomen soft, non-tender, nondistended. No hepato-splenomegaly , or palpable masses. No guarding. MUSCULOSKELETAL: Extremities without clubbing, cyanosis, or edema. No joint tenderness, effusion, or edema noted. No calf tenderness. NEUROLOGICAL: Awake and alert. Cranial nerves II through XII intact. Motor and sensory grossly within normal limits. Five out of 5 muscle strength in all muscle groups. Normal speech. A/P Problem List: (1) Community acquired bacterial pneumonia ICD Code: J15.9 Status: Acute (2) Persistent cough for 3 weeks or longer ICD Code: R05 Status: Acute (3) Leukocytosis ICD Code: D72.829 Status: Acute (4) Acute renal failure ICD Code: N17.9 Status: Acute (5) Anemia of chronic disease ICD Code: D63.8 Status: Acute (6) Benign hypertension ICD Code: I10 Status: Acute (7) Diabetes mellitus ICD Code: E11.9 Status: Acute (8) Dehydration ICD Code: E86.0 Status: Acute (9) Vomiting ICD Code: R11.10 Status: Acute Assessment and Plan 76-year-old and Spanish speaking female with a history of diabetes type 2 who presented to the ED for evaluation of dizziness, productive cough and generalized weakness, who failed outpatient azithromycin antibiotic treatment for bronchitis two weeks ago. Community-acquired bacterial pneumonia with associated leukocytosis and productive cough and congestion -Failed outpatient therapy -Continue Levaquin 250 mg IV daily renally dose. - BC NGTD. -DuoNeb PRN. Encourage IS and acapella use. -WBC 11.5, CBC in am. - Start Mucinex 600 mg BID scheduled for congestion. Benign Positional Vertigo: Continue meclezine. Improved. Monitor .To follwo up as OP with her PCP and to consider ENT evaluation as well. Acute renal failure, prerenal secondary to dehydration - Creatinine 1.05 today 01/02 - Continue IVF NS 100 ml/hr - CBC and BMP in am, close BUN and creatinine monitoring. - Encourage PO intake Type 2 diabetes - Hold oral hypoglycemic agent at this time. - Continue insulin sliding scale with fingerstick blood glucose monitoring - Hemoglobin A1c pending Anemia of chronic disease - Hemoglobin 9.4, CBC in am. Hypertension - Continue Lopressor. Clonidine PRN. - BP stable at this time. DVT prophylaxis: Bilateral SCDs PT consult for evaluation Discussed with the patient and the nurse. Case management consult for DC plan. Improved, plan to DC home today, to follow up as OP with PCP and consultants. Problem Qualifiers (1) Vomiting: Qualified Code: R11.2 - Non-intractable vomiting with nausea, unspecified vomiting type Edilma Miles MD Jan 04, 2017 08:15
[2017-01-04] MEDS ORDERED: MUCI600T PO (08:17)
[2017-01-04] MEDS ORDERED: LEVA250T PO (08:17)
[2017-01-04] MEDS ORDERED: MECL-62 PO (08:17)
--- NOTE | 2017-01-04 08:18 | HHI.DS ---
Discharge Summary Admission Date Jan 01, 2017 at 20:40 Discharge Date: Jan 04, 2017 Admitting Diagnosis Failed outpatient management bronchitis, dehydration, vomiting (1) Community acquired bacterial pneumonia ICD Code: J15.9 Diagnosis: Principal (2) Persistent cough for 3 weeks or longer ICD Code: R05 Diagnosis: Principal (3) Leukocytosis ICD Code: D72.829 Diagnosis: Secondary (4) Acute renal failure ICD Code: N17.9 Diagnosis: Principal (5) Anemia of chronic disease ICD Code: D63.8 Diagnosis: Secondary (6) Benign hypertension ICD Code: I10 Diagnosis: Secondary (7) Diabetes mellitus ICD Code: E11.9 Diagnosis: Secondary Procedures none Brief History - From Admission 76-year-old speaking female with a history of diabetes type 2 presented to the ED for evaluation of dizziness, productive cough and generalized weakness. She was recently diagnosed with bronchitis 2 weeks ago and was started on Z-Diego which she completed without any improvement. She then returned to the ED on 12/30/16 and was started on doxycycline however she continued to have cold symptoms, dizziness and no productive cough without any febrile episode. Today she was visiting her who is currently in ICU when she became dizzy, lightheaded started vomiting. She has some shortness of breath however without any significant chest pain. She denies any hemoptysis or GI bleed. CBC/BMP: 01/03/17 0541 01/03/17 0541 Significant Findings Laboratory Tests Test 01/01/17 01/01/17 01/02/17 01/03/17 18:00 19:30 06:51 05:41 White Blood Count 15.4 TH/MM3 11.5 TH/MM3 11.1 TH/MM3 (4.0-11.0) (4.0-11.0) (4.0-11.0) Hemoglobin 10.6 GM/DL 9.4 GM/DL 9.5 GM/DL (11.6-15.3) (11.6-15.3) (11.6-15.3) Hematocrit 32.0 % 28.9 % 28.8 % (35.0-46.0) (35.0-46.0) (35.0-46.0) Mean Corpuscular Volume 79.0 FL 79.8 FL (80.0-100.0) (80.0-100.0) Mean Corpuscular Hemoglobin 26.3 PG 26.0 PG 26.4 PG (27.0-34.0) (27.0-34.0) (27.0-34.0) Eosinophils (%) (Auto) 7.3 % (0.0-4.0) 5.1 % (0.0-4.0) 14.2 % (0.0-4.0) Neutrophils # (Auto) 8.4 TH/MM3 (1.8-7.7) Lymphocytes # (Auto) 5.0 TH/MM3 (1.0-4.8) Eosinophils # (Auto) 1.1 TH/MM3 0.6 TH/MM3 1.6 TH/MM3 (0-0.4) (0-0.4) (0-0.4) Creatinine 1.28 MG/DL 1.05 MG/DL 1.14 MG/DL (0.50-1.00) (0.50-1.00) (0.50-1.00) Estimat Glomerular Filtration 41 ML/MIN (>89) 51 ML/MIN (>89) 47 ML/MIN (>89) Rate Random Glucose 182 MG/DL (74-106) Aspartate Amino Transf 66 U/L (15-37) 47 U/L (15-37) (AST/SGOT) Total Protein 9.6 GM/DL (6.4-8.2) Urine Leukocyte Esterase TRACE (NEG) Red Blood Count 3.61 MIL/MM3 3.61 MIL/MM3 (4.00-5.30) (4.00-5.30) Chloride Level 112 MEQ/L (98-107) Hemoglobin A1c 7.1 % (4.3-6.0) Albumin 2.9 GM/DL (3.4-5.0) PE at Discharge GENERAL: Well-nourished, well-developed patient, NAD. SKIN: No rashes, ecchymoses or lesions. Cool and dry. HEENT: Atraumatic. Normocephalic. No temporal or scalp tenderness. PERRLA. Extraocular motions intact. No scleral icterus. Nose without bleeding, purulent drainage or septal hematoma. Airway patent. NECK: Trachea midline. No JVD or lymphadenopathy. Supple, nontender, no meningeal signs. CARDIOVASCULAR: Regular rate and rhythm without murmurs, gallops, or rubs. RESPIRATORY: CTA. Breath sounds decreased bilaterally. No wheezes, rales, or rhonchi. GASTROINTESTINAL: Abdomen soft, non-tender, nondistended. No hepato-splenomegaly , or palpable masses. No guarding. MUSCULOSKELETAL: Extremities without clubbing, cyanosis, or edema. No joint tenderness, effusion, or edema noted. No calf tenderness. NEUROLOGICAL: Awake and alert. Cranial nerves II through XII intact. Motor and sensory grossly within normal limits. Five out of 5 muscle strength in all muscle groups. Normal speech. Hospital Course 76-year-old and [place] speaking female with a history of diabetes type 2 who presented to the ED for evaluation of dizziness, productive cough and generalized weakness, who failed outpatient azithromycin antibiotic treatment for bronchitis two weeks ago. Community-acquired bacterial pneumonia with associated leukocytosis and productive cough and congestion -Failed outpatient therapy -Continue Levaquin 250 mg IV daily renally dose. - BC NGTD. -DuoNeb PRN. Encourage IS and acapella use. -WBC 11.5, CBC in am. - Mucinex 600 mg BID scheduled for congestion. -Patient to get moon as OP with pulm for further evaluation Benign Positional Vertigo: Continue meclezine. Improved. Monitor .To uyen as OP with her PCP and to consider ENT evaluation as well. Acute renal failure, prerenal secondary to dehydration. Encouraged PO hydration. - Creatinine improving - Continue IVF NS 100 ml/hr - CBC and BMP in am, close BUN and creatinine monitoring. - Encourage PO intake Type 2 diabetes - Hold oral hypoglycemic agent at this time. - Continue insulin sliding scale with fingerstick blood glucose monitoring - Hemoglobin A1c pending Anemia of chronic disease - Hemoglobin 9.4, CBC in am. Hypertension - Continue Lopressor. Clonidine PRN. - BP stable at this time. DVT prophylaxis: Bilateral SCDs PT consult for evaluation Discussed with the patient and the nurse. Improved, to DC home today, to follow up as OP with PCP and consultants. Pt Condition on Discharge: Stable Discharge Disposition: Discharge Home Discharge Time: > 30 minutes Discharge Instructions DIET: Follow Instructions for: Heart Healthy Diet, Diabetic Diet Activities you can perform: Regular-No Restrictions Follow up Referrals: PCP Follow-up - 3-5 Days Pulmonology - 1 Week New Medications: Albuterol 6.7 GM Inh (Proventil Hfa 6.7 GM Inh) 90 Mcg/Act Aer 2 PUFF INH Q4-6H PRN SHORTNESS OF BREATH #1 Ref 0 INHALER Diphenhydramine (Benadryl Allergy) 25 Mg Tab 25 MG PO HS PRN vertigo/sleep/allergy #30 Ref 0 TAB Ipratropium HFA 12.9 GM Inh (Atrovent HFA 12.9 GM Inh) 17 Mcg/Act Aer 2 PUFF INH Q6HR PRN SHORTNESS OF BREATH #1 Ref 0 INHALER Levofloxacin (Levaquin) 250 Mg Tab 250 MG PO Q48H Infection #5 Ref 0 TAB Guaifenesin ER 12 HR (Mucinex ER 12 HR) 600 Mg Gilma 600 MG PO BID cough #10 TAB Meclizine (Meclizine) 25 Mg Tab 25 MG PO Q8H PRN vertigo/dizziness #30 TAB Continued Medications: Aspirin (Aspirin) 81 Mg Tabdr 81 MG PO DAILY TAB Benzonatate (Tessalon Perles) 100 Mg Cap 100 MG PO TID PRN COUGH #12 Ref 0 CAP Enalapril (Vasotec) 10 Mg Tab 20 MG PO DAILY #30 Ref 0 TAB Glipizide (Glipizide) 5 Mg Tab 5 MG PO BIDAC Take 30 minutes before a meal Blood Sugar Management #60 Ref 0 TAB Ipratropium Nasal (Ipratropium Nasal) 0.06% [place] 1 SPRAY EACH NARE TID PRN NASAL CONGESTION #1 Ref 0 BOTTLE Metoprolol Tartrate (Metoprolol Tartrate) 50 Mg Tab 50 MG PO DAILY #30 Ref 0 TAB Omeprazole (Omeprazole) 20 Mg Tab 20 MG PO DAILY #30 Ref 0 TAB Discontinued Medications: Doxycycline Hyclate (Doxycycline Hyclate) 100 Mg Cap 100 MG PO BID Infection #20 Ref 0 CAP Edilma Miles MD Jan 04, 2017 08:18
[2017-01-04] MEDS ORDERED: BENA25TA3 PO (08:20)
[2017-01-04] MEDS ORDERED: ALBU6.7H INH (08:21)
[2017-01-04] MEDS ORDERED: IPRA17I INH (08:21)
[2017-01-04] MEDS: SODIUM CHLORIDE 0.9% FLUSH 10 ML FLUSH IV FLUSH SCH (09:00)
== END 2017-01-04 13:00 | disposition home or self-care (01) | DRG 194 ==
LOC: NEPC 17:05 → NEDA 20:40 → N06B 22:50
PROVIDERS: ADMIT Hospitalist; ATTEND Hospitalist
DX: J15.9 Unspecified bacterial pneumonia (principal); N17.9 Acute kidney failure, unspecified; D63.8 Anemia in other chronic diseases classified elsewhere; E11.9 Type 2 diabetes mellitus without complications; I10 Essential (primary) hypertension; E78.00 Pure hypercholesterolemia, unspecified; E86.0 Dehydration; J40 Bronchitis, not specified as acute or chronic; M06.9 Rheumatoid arthritis, unspecified; R05 Cough; R11.2 Nausea with vomiting, unspecified; H81.10 Benign paroxysmal vertigo, unspecified ear; Z79.4 Long term (current) use of insulin
CPT/HCPCS: 71010; 71020; 80048; 80053; 81001; 82948; 83036; 85025; 87040; 87804; 93005; 94150; 94667; 94668; 96361; 96374; 99283; J0456; J0696; J1815; J1956; J2405; J7030; J7050